=== PATIENT | female | born 1985 | race Caucasian/White ===

== ENCOUNTER 2023-05-24 01:05 | Inpatient (IN) | payer BC ==
[2023-05-24] MEDS ORDERED: Calcium Carbonate 500 MG Tab.Chew PO PRN (01:43)
[2023-05-24] MEDS ORDERED: Ondansetron 4 MG/2 ML SDV IVPUSH PRN (01:43)
[2023-05-24] MEDS ORDERED: Acetaminophen 325 MG Tab PO PRN ×2 (01:43→13:12)
[2023-05-24] MEDS ORDERED: Sodium Chloride 0.9% 10 ML Syringe FLUSH PRN (01:43)
[2023-05-24] MEDS ORDERED: Lidocaine 1% 50 ML MDV INJECT PRN (01:43)
[2023-05-24] MEDS ORDERED: Oxytocin/Lactated Ringers 30 UNIT/500 ML BAG IV SCH ×2 (01:45→13:12)
[2023-05-24 02:05] LABS: BASOPHILS PERCENT AUTO 0.2 % (0.0-1.0); EOSINOPHILS ABSOLUTE AUTO 0.1 K/mm3 (0.0-0.4); EOSINOPHILS PERCENT AUTO 0.5 % (0.0-6.0); HEMATOCRIT 37.3 % (37.0-47.0); IMMATURE GRAN ABSOLUTE AUTO 0.08 K/mm3 (0.00-0.05); IMMATURE GRAN PERCENT AUTO 0.6 % (0.0-0.4); LYMPHOCYTES ABSOLUTE AUTO 1.9 K/mm3 (1.0-4.8); LYMPHOCYTES PERCENT AUTO 13.9 % (24.0-44.0); MEAN CORPUSCULAR HEMOGLOBIN 30.2 pg (28.0-32.0); MEAN CORPUSCULAR HGB CONC 34.9 g/dl (32.0-36.0); MEAN CORPUSCULAR VOLUME 86.5 fl (83.0-99.0); MEAN PLATELET VOLUME 11.1 fl (9.4-12.3); MONOCYTES ABSOLUTE AUTO 0.6 K/mm3 (0.0-0.8); MONOCYTES PERCENT AUTO 4.4 % (0.0-8.0); NEUTROPHILS ABSOLUTE AUTO 10.9 K/mm3 (1.8-7.7); NEUTROPHILS PERCENT AUTO 80.4 % (41.0-71.0); PLATELET COUNT,PLT 179 K/mm3 (150-400); RED BLOOD CELL COUNT 4.31 M/mm3 (4.10-5.30); WHITE BLOOD CELL COUNT,WBC 13.51 K/mm3 (3.9-11.3)
[2023-05-24] MEDS: Nalbuphine HCl 10 MG/ 1ML Amp IVPUSH PRN (02:10)
[2023-05-24] MEDS: Lactated Ringers 1,000 ML IV SCH (02:15)
[2023-05-24 02:29] LABS: A/G RATIO 0.8 (1-2); ANION GAP 17.8 (5-15); BILIRUBIN TOTAL 0.3 mg/dL (0.2-1.0); CALCIUM 8.8 mg/dL (8.5-10.1); CREATININE 0.5 mg/dL (0.55-1.02); EST CRCL DRUG DOSING (CG) 139.97 mL/min; POTASSIUM,K 3.8 mEq/L (3.5-5.1); PROTEIN TOTAL,TP 6.6 g/dl (6.4-8.2); URIC ACID 4.3 mg/dL (2.6-6.0)
[2023-05-24 02:35] LABS: CREATININE,URINE RAND 106.1 mg/dL (30.0-125.0); PROTEIN CREATININE RATIO,URINE 333.6 mg/g (0-149); PROTEIN,URINE RANDOM 35.4 mg/dL (0.0-11.8)
[2023-05-24] MEDS ORDERED: fentaNYL 100 MCG/2 ML SDV ONE (04:15)
[2023-05-24] MEDS ORDERED: Bupivacaine/fentaNYL/NS 100 ML Bag EPIDUR PRN (04:16)
[2023-05-24] MEDS ORDERED: diphenhydrAMINE 50 MG/ML SDV IVPUSH PRN (04:16)
[2023-05-24] MEDS: fentaNYL 100 MCG/2 ML SDV EPIDUR PRN (04:30)
[2023-05-24] MEDS: ePHEDrine 50 MG/ML SDV IVPUSH PRN (05:27)
[2023-05-24] MEDS ORDERED: Sodium Chloride 0.9% 10 ML Syringe FLUSH SCH (09:00)
[2023-05-24] MEDS: Oxytocin/Lactated Ringers 30 UNIT/500 ML BAG IV SCH (09:59)
[2023-05-24] MEDS ORDERED: Lidocaine 1% 10 ML MDV ONE (12:00)
[2023-05-24] MEDS ORDERED: Magnesium Hydroxide 400 MG/5 ML Susp 30 ML Cup PO PRN (13:12)
[2023-05-24] MEDS ORDERED: Hydrocortisone Acetate 25 MG Supp RECTAL PRN (13:12)
[2023-05-24] MEDS ORDERED: Docusate Sodium 100 MG Cap PO PRN (13:12)
[2023-05-24] MEDS: Benzocaine/Menthol 20%-0.5% Spray 78 GM Cannister TOP PRN (13:35)
[2023-05-24] MEDS: Witch Hazel Medicated Pads 40/Jar TOP PRN (13:36)
[2023-05-25] MEDS: Ibuprofen 600 MG Tab PO PRN (04:48)
[2023-05-25] MEDS: Measles, Mumps & Rubella Vaccine 0.5 ML SDV SUBCUT ONE (11:21)
[2023-05-25] MEDS: Prenatal Multivitamin with Calcium/Folic Acid/Iron Tab PO SCH (12:59)
== END 2023-05-25 12:15 | disposition home or self-care (01) | DRG 560 ==
LOC: JD.OBCHECK 01:05 → JD.OB 01:10 → JD.OBCHECK 01:18 → JD.OB 01:18 → OBSVTOIN 13:12
PROVIDERS: ADMIT Obstetrics & Gynecology; ATTEND Obstetrics & Gynecology
PROC: 10E0XZZ Delivery of Products of Conception, External Approach (ICD-10-PCS; principal; 2023-05-24)
PROC: 0HQ9XZZ Repair Perineum Skin, External Approach (ICD-10-PCS; 2023-05-24)
PROC: 3E0R3BZ Introduction of Anesthetic Agent into Spinal Canal, Percutaneous Approach (ICD-10-PCS; 2023-05-24)
PROC: 00HU33Z Insertion of Infusion Device into Spinal Canal, Percutaneous Approach (ICD-10-PCS; 2023-05-24)
PROC: 0UQMXZZ Repair Vulva, External Approach (ICD-10-PCS; 2023-05-24)
PROC: 3E0134Z Introduction of Serum, Toxoid and Vaccine into Subcutaneous Tissue, Percutaneous Approach (ICD-10-PCS; 2023-05-24)
DX: O42.02 Full-term premature rupture of membranes, onset of labor within 24 hours of rupture (principal); O14.04 Mild to moderate pre-eclampsia, complicating childbirth; O70.0 First degree perineal laceration during delivery; O77.0 Labor and delivery complicated by meconium in amniotic fluid; O99.214 Obesity complicating childbirth; O34.219 Maternal care for unspecified type scar from previous cesarean delivery; Z37.0 Single live birth; Z23 Encounter for immunization; Z3A.39 39 weeks gestation of pregnancy
CPT/HCPCS: 36415; 51701; 51702; 59025; 59409; 80053; 82570; 83615; 84156; 84550; 85025; 86592; 86850; 86900; 86901; 90471; 90707; A9270-GY; C1758; J2300; J3010; J3490; J7120; J7999